=== PATIENT | female | born 1960 | race Caucasian/White ===

== ENCOUNTER 2018-07-06 09:31 | Observation (INO) | payer OTHER ==
[2018-07-06] VITALS (27 sets, daily range): BP systolic 112–160; BP diastolic 62–93; PULSE 61–98; RESP 11–20; Ht 146.1 cm; Wt 64.9 kg
[~2018-07-06] VITALS: Ht 146.1 cm; Wt 64.9 kg
[~2018-07-06 09:31] MED LIST: CEFAZOLIN 2 GM/50 ML (PMX) 50 ML IVPB SCH; SOD CHLORIDE 0.9% 1,000 ML IV SCH
[2018-07-06] MEDS ORDERED: LOSA25TA12 PO (10:16)
[2018-07-06] MEDS ORDERED: METO-335 PO (10:17)
[2018-07-06] MEDS ORDERED: SERT25TA PO (10:17)
[2018-07-06] MEDS ORDERED: GABA300C16 PO (10:17)
--- NOTE | 2018-07-06 10:27 | PREAC ---
Date/Time of Note Date/Time of Note DATE: 07/06/18 TIME: 10:24 Anesthesia Eval and Record Evaluation Time Pre-Procedure Interview DATE: 07/06/18 TIME: 10:24 Age 57 Sex female NPO: 8 hrs Preoperative diagnosis rectal bleeding Planned procedure exam under anesthesia, poss. hemorrhoidectomy Past Medical History Past Medical History: Includes Cardio: HTN (on Metoprolol and Losartan) Neuro: Peripheral neuropathy (pre-existing intermittent tingling of arms, fingers, legs, toes-takes Gabapentin), Other (occasional low back pain) Psych: Depression (takes Sertraline) Surgery & Anesthesia Issues No known issue Meds Anticoagulation: No Beta Brandy within 24 hr: Yes Reported Medications Gabapentin* (Gabapentin*) 300 Mg Capsule, 300 MG PO DAILY, #60 CAP 07/06/18 Metoprolol Succinate* (Toprol XL*) 25 Mg Tab.sr.24h, 25 MG PO DAILY, #30 TAB 07/06/18 Sertraline Hcl* (Zoloft*) 25 Mg Tablet, 25 MG PO DAILY, #30 TAB 07/06/18 Losartan Potassium* (Losartan Potassium*) 25 Mg Tablet, 25 MG PO DAILY, TAB 07/06/18 Current Medications Cefazolin Sodium/ Dextrose 50 ml @ 100 mls/hr PREOP IVPB ; Start 07/06/18 at 06:00; Stop 07/06/18 at 17:00 Sodium Chloride 1,000 ml @ 75 mls/hr [id number] IV ; Start 07/06/18 at 06:00; Stop 07/06/18 at 17:00 Meds reviewed: Yes Allergies Coded Allergies: No Known Allergy (Unverified , 07/06/18) Allergies Reviewed: Yes Labs/Studies Labs Reviewed: Reviewed by anesthesiologist test: N/A Studies: ECG, CXR Pre-procedure Exam Airway: Adequate mouth opening, Adequate thyromental dist Mallampati: Mallampati II Teeth: Normal Lung: Normal Heart: Normal ASA Physical Status ASA physical status: 2 Emergency: None Planned Anesthetic General/MAC: LMA Planned Pain Management Parenteral pain med, Local by surgeon Pre-operative Attestations Prior to commencing anesthesia and surgery, the patient was re-evaluated, there was verification of: *The patient's identity *The results of appropriate recent lab work and preoperative vital signs *The above evaluation not changing prior to induction *Anesthetic plan, risk benefits, alternative and complications discussed with patient/family; questions answered; patient/family understands, accepts and wishes to proceed. ELEONORA HERNANDEZ Jul 06, 2018 10:27
[2018-07-06] MEDS ORDERED: BUPIVACAINE 0.5%/EPI (SDV) 30 ML INJ ONE (13:28)
[2018-07-06] MEDS ORDERED: FENTAnyl 50 MCG/ML VIAL ONE ×2 (13:36→15:28)
[2018-07-06] MEDS ORDERED: SUCCINYLCHOLINE CHLORIDE 100 MG/5 ML SYG IV ONE (13:49)
[2018-07-06] MEDS ORDERED: PROPOFOL 20 ML ONE (13:49)
[2018-07-06] MEDS ORDERED: FLUMAZENIL 0.5 MG INJ ONE (13:49)
[2018-07-06] MEDS ORDERED: CEFAZOLIN 1 GM INJ ONE (13:49)
[2018-07-06] MEDS ORDERED: SUGAMMADEX SODIUM 200 MG/2 ML VIAL IV ONE (13:49)
[2018-07-06] MEDS ORDERED: HYDROmorphONE 1 MG/5 ML IV SYRINGE IV ONE (15:15)
--- NOTE | 2018-07-06 15:16 | OPR ---
Date/Time of Note Date/Time of Note DATE: 07/06/18 TIME: 15:11 Operative Report Procedure Date: Jul 06, 2018 Preoperative Diagnosis Engorged hemorrhoids internal and external Postoperative Diagnosis Engorged grade 3 hemorrhoids left lateral and right posterior internal and external Operation/Procedure Performed Internal and external hemorrhoidectomy left lateral and right posterior; mucosal advancement flap Surgeon see signature line [employer] Dispatcher None Anesthesia Type: general Estimated Blood Loss: 0 - 10 ml's Transfusion none Specimen Hemorrhoidal plexus left lateral and right posterior Grafts/Implants none Complications none Pt Condition Post Procedure: stable Disposition: PACU Indications This patient had continuous bleeding and discomfort with bowel movements. She underwent evaluation which revealed her to have hemorrhoids and she is therefore to undergo excision for symptomatic treatment of hematochezia. Procedure Description Patient was laid in the lithotomy position. Timeout was conducted after the perianal region was prepped and draped with Betadine solution. The edges of the external hemorrhoids at the left lateral and right posterior region were grasped with hemostat and thereafter the hemorrhoidal plexus was everted from within to outside the anal canal. A slit was made with the use of the cautery along the anoderm and thereafter the hemostat clamp was used to dissect the hemorrhoidal plexus away from the sphincter muscle fibers and using a LigaSure of the hemorrhoidal plexus at the left lateral axis was resected. This procedure was then repeated for the right posterior hemorrhoidal plexus. The mucosa of the a nus and rectum was thereafter dissected free from the submucosa underneath with blunt dissection using sponge. Once this mucosal flap was created it was stitched to the area of the anoderm for improved pain relief and healing purposes. I noted that there was a hematoma within the mucosa of the mucosal flap created and therefore I placed 2 [id number] sutures within the tissue of the mucosa to ligate any engorged vessels there and prevent recurrence of engorged hemorrhoids. Afterwards area was inspected for hemostasis which was conducted with cautery. The anal canal was cleaned with saline and thereafter fibrillar dressing was rolled and placed into the anus. All instrument sponge needle counts were correct patient tolerated procedure well and was disposition to the recovery suite in stable condition. MALLORIE DIOR Jul 06, 2018 15:16
[2018-07-06] MEDS ORDERED: ONDANSETRON 4 MG INJ ONE (15:22)
[2018-07-06] MEDS ORDERED: FENTAnyl 50 MCG/ML VIAL IV PRN ×3 (15:30)
[2018-07-06] MEDS ORDERED: HYDROmorphONE 1 MG/5 ML IV SYRINGE IV PRN ×3 (15:30)
[2018-07-06] MEDS ORDERED: METOCLOPRAMIDE 10 MG INJ IV PRN (15:30)
[2018-07-06] MEDS ORDERED: DIPHENHYDRAMINE 50 MG INJ IV PRN (15:30)
[2018-07-06] MEDS ORDERED: ONDANSETRON 4 MG INJ IV PRN (15:30)
[2018-07-06] MEDS ORDERED: ALBUTEROL 0.083% (NEB) 2.5 MG/3 ML AMP HHN PRN (15:30)
[2018-07-06] MEDS ORDERED: MEPERIDINE 25 MG INJ IV PRN (15:30)
[2018-07-06] MEDS ORDERED: HYDROmorphONE 0.5 MG/0.5 ML SYG IV PRN (16:30)
[2018-07-06] MEDS ORDERED: IBUPROFEN 600 MG TAB PO PRN (16:30)
[2018-07-06] MEDS: LACTATED RINGER'S 1,000 ML IV SCH (20:27)
[2018-07-07] VITALS: BP 121/63; PULSE 86; RESP 18
[2018-07-07 02:15] VITALS: BP 119/64; PULSE 70; RESP 19
[2018-07-07] MEDS: HYDROCODONE/APAP (5/325) TAB PO PRN ×2 (05:30→09:30)
[2018-07-07] MEDS: LACTATED RINGER'S 1,000 ML IV SCH (05:50)
[2018-07-07 07:53] VITALS: BP 111/61; PULSE 74; RESP 18
--- NOTE | 2018-07-07 09:54 | PAC ---
Date/Time of Note Date/Time of Note DATE: 07/07/18 TIME: 09:54 Post-Anesthesia Notes Post-Anesthesia Note Last documented vital signs Vital Signs Date Temp Pulse Resp B/P (MAP) Pulse Ox O2 O2 Flow FiO2 Time Delivery Rate 07/07/18 98.1 74 18 111/61 96 07:53 (78) 07/07/18 Room Air 00:00 Activity: WNL Respiratory function: WNL Cardiovascular function: WNL Mental status: Baseline Pain reasonably controlled: Yes Hydration appropriate: Yes Nausea/Vomiting absent: Yes JIMMY KIM Jul 07, 2018 09:54
== END 2018-07-07 10:45 | disposition home or self-care (01) ==
LOC: SDS 09:31 → REC 16:33 → MS1 17:25
PROVIDERS: ADMIT Surgery Surgical Critical Care; ATTEND Surgery Surgical Critical Care
DX: K64.2 Third degree hemorrhoids (principal); I10 Essential (primary) hypertension; G62.9 Polyneuropathy, unspecified
CPT/HCPCS: 46255; 88304; J0690; J1170; J1200; J2175; J2405; J3010; J7120; Z7500; Z7512; Z7610; 99217; G0378